=== PATIENT | female | born 1945 | race Caucasian/White ===

== ENCOUNTER 2019-10-06 20:11 | Emergency (ER) | payer OTHER ==
[~2019-10-06] VITALS: Ht 157.5 cm; Wt 65.8 kg
[~2019-10-06 20:11] MED LIST: AMLODIPINE BESYL5 MG PO; LOSARTAN POTASS50 MG PO; METHYLPREDNISOLO4 MG PO; TRAMADOL-ACETAMI1 EA PO
--- OUTSIDE RECORDS SUMMARY | 2019-10-06 20:14 | XMS REPORT ---
[facility] Address Unknown Phone Unavailable Care Team Providers Care Grain Manager Name Role Phone Unavailable Unavailable Payers Payer Name Policy Type Policy Number Effective Date Expiration Date Problems This patient has no known problems. Allergies, Adverse Reactions, Alerts Allergy Name Allergy Type Status Severity Reaction(s) Onset Date Inactive Date Treating Clinician Comments kaitlynn Chen [place] 2015-10-06 00:00:00 Medications This patient has no known medications. Results Test Description Test Time Test Comments Text Results Atomic Results Result Comments URINALYSIS COMPLETE 2019-10-01 03:43:00 UA COLOR (test code=COLU) YELLOW YELLOW UA APPEARANCE (test code=APPU) CLEAR CLEAR UA GLUCOSE DIPSTICK (test code=DGLUU) NEGATIVE mg/dL NEGATIVE UA BILIRUBIN DIPSTICK (test code=BILU) NEGATIVE mg/dL NEGATIVE UA KETONE DIPSTICK (test code=KETU) NEGATIVE mg/dL NEGATIVE UA SPECIFIC GRAVITY (test code=SGU) 1.023 1.001-1.035 UA BLOOD DIPSTICK (test code=ELVIRA) Negative mg/dL NEGATIVE UA PH DIPSTICK (test code=LIMA) 5.5 5.0-8.0 UA PROTEIN DIPSTICK (test code=PROU) NEGATIVE mg/dL NEGATIVE UA UROBILINIOGEN DIPSTICK (test code=URO) Normal mg/dL NEGATIVE UA NITRITE DIPSTICK (test code=SHELLY) NEGATIVE NEGATIVE UA LEUKOCYTE ESTERASE W REFLEX (test code=LEUUR) 250 Guerda/uL (2+) Guerda/uL NEGATIVE UA WBC (test code=WBCU) 11-20 per HPF 0-5 UA RBC (test code=RBCU) 21-50 #/HPF 0-5 UA EPITHELIAL CELLS (test code=EPIU) FEW per HPF FEW UA BACTERIA (test code=BACU) FEW #/HPF NONE UA MUCUS (test code=MUCU) FEW #/LPF FEW Urine Source? Clean CatchURINALYSIS [id number] 03:41:00* Test Item Value Reference Range Comments UA COLOR (test code=COLU) YELLOW YELLOW UA APPEARANCE (test code=APPU) CLEAR CLEAR UA GLUCOSE DIPSTICK (test code=DGLUU) NEGATIVE mg/dL NEGATIVE UA BILIRUBIN DIPSTICK (test code=BILU) NEGATIVE mg/dL NEGATIVE UA KETONE DIPSTICK (test code=KETU) NEGATIVE mg/dL NEGATIVE UA SPECIFIC GRAVITY (test code=SGU) 1.023 1.001-1.035 UA BLOOD DIPSTICK (test code=ELVIRA) Negative mg/dL NEGATIVE UA PH DIPSTICK (test code=LIMA) 5.5 5.0-8.0 UA PROTEIN DIPSTICK (test code=PROU) NEGATIVE mg/dL NEGATIVE UA UROBILINIOGEN DIPSTICK (test code=URO) Normal mg/dL NEGATIVE UA NITRITE DIPSTICK (test code=SHELLY) NEGATIVE NEGATIVE UA LEUKOCYTE ESTERASE W REFLEX (test code=LEUUR) 250 Guerda/uL (2+) Guerda/uL NEGATIVE UA WBC (test code=WBCU) per HPF 0-5 UA RBC (test code=RBCU) per HPF 0-5 UA EPITHELIAL CELLS (test code=EPIU) per HPF Few UA BACTERIA (test code=BACU) per HPF NONE Urine Source? Clean [id number] 11:10:00* Test Item Value Reference Range Comments TROPONIN-I (test code=TROPI) <0.015 ng/mL 0-0.045 COMMENTS TO PSYCHIATRIC ASSISTANT: COLLECT 3 HOURS AFTER PREVIOUS [id number] 07:50:00* Test Item Value Reference Range Comments TROPONIN-I (test code=TROPI) <0.015 ng/mL 0-0.045 COMMENTS TO PSYCHIATRIC ASSISTANT: COLLECT 3 HOURS AFTER PREVIOUS SAMPLE- CTA [id number] 01:58:00 Name: JOSS HOFF [facility] : 1945 Age/S: 73 / F [address] [facility] Unit #: [id number] Loc: [place] [address] Phys: Daron Morris MD Acct: [id number] Dis Date: Status: ADM IN PHONE #: [phone] Exam Date: 09/30/2019 0115 FAX #: [phone] Reason: cp sob EXAMS: CPT CODE: [id number] CTA CHEST 82865 EXAM: CTA aorta with IV contrast CLINICAL INFORMATION: Upper abdominal pain and shortness of breath TECHNIQUE: CT angiography of the chest, abdomen and pelvis was performed after administration of IV contrast per protocol including reformats. Coronal MIP imaging was performed. MPR analysis and 3D volume rendered reformats were generated on an independent work station. Comparison: CT February 28, 2015 Location: R16 FINDINGS: Lines and Tubes: None Aorta: Limited evaluation of the aortic roots secondary to cardiac motion. The remainder of the thoracic is unremarkable; specifically no aneurysmal dilation or dissection is seen. The abdominal aorta is normal in caliber. No dissection is seen. The central celiac, SMA and HAMILTON are patent. Perfusion to the bilateral kidneys is symmetric. Pulmonary arteries: No evidence of acute pulmonary embolism to the level of the segmental pulmonary arteries Mediastinum and Vasculature: There are no intrathoracic lymph nodes meeting CT criteria for enlargement. There is no cardiac chamber enlargement. The aorta and pulmonary artery are normal in size. A large hiatal hernia is seen Airways/Pleura/Lungs: The central airways are patent and without filling defects. The pleura is unremarkable. No lung consolidation lung masses are seen Bones and Soft tis sues: There are no suspicious osseous lesions. The overlying soft tissues are unremarkable. Abdomen: The spleen, kidneys, and adrenals are unremarkable. There is prominent intra and extrahepatic biliary ductal di lation with the common bile duct measuring up to 1.6 cm, this is similar i n appearance to remote prior of February 28, 2015. No bowel obstruction is se en. Large volume of stool seen throughout the colon No ascites or PAG E 1 Signed Report (CONTINUED) Name: JOSS HOFF [facility] : 1945 Age/S: 73 / F [address] [facility] Unit #: [id number] Loc: [place] [address] Phys: Daron Morris MD Acct: [id number] Dis Date: Status: ADM IN PHONE #: [phone] Exam Date: 09/30/2019114 FAX #: [phone] Reason: cp sob EXAMS: CPT CODE: [id number] CTA CHEST 21675 <Continued> pneumoperitoneum IMPRESSION: 1. No evidence of aortic aneurysm or dissection 2. No acute pulmonary embolus to the level of the segmental pulmonary arteries 3. Multiple additional findings as above including new large hiatal hernia and similar-appearing marked extra and intrahepatic common bile duct dilation at 0158 Reported and signed by: Yamini Gracia M.D. CC: Andrés eWiss; Daron Morris MD Technologist:ADELAIDE ADAMS CTDI: DLP: Trnscb Date/Time: 09/30/2019 (0158) [email or web address] Orig Print D/T: S: 09/30/2019 (0201) PAGE 2 Signed Report - CT ABD PELVIS [id number] 01:58:00 Name: JOSS HOFF [facility] : 1945 Age/S: 73 / F [address] [facility] Unit #: [id number] Loc: [place] [address] Phys: Daron Morris MD Acct: [id number] Dis Date: Status: ADM IN PHONE #: [phone] Exam Date: 09/30/2019 011 FAX #: [phone] Reason: upper abd pain EXAMS: CPT CODE: [id number] CT ABD PELVIS W/CONT 56181 EXAM: CTA aorta with IV contrast CLINICAL INFORMATION: Upper abdominal pain and shortness of breath TECHNIQUE: CT angiography of the chest, abdomen and pelvis was performed after administration of IV contrast per protocol including reformats. Coronal MIP imaging was performed. MPR analysis and 3D volume rendered reformats were generated on an independent work station. Comparison: CT February 28, 2015 Location: R16 FINDINGS: Lines and Tubes: None Aorta: Limited evaluation of the aortic roots secondary to cardiac motion. The remainder of the thoracic is unremarkable; specifically no aneurysmal dilation or dissection is seen. The abdominal aorta is normal in caliber. No dissection is seen. The central celiac, SMA and HAMILTON are patent. Perfusion to the bilateral kidneys is symmetric. Pulmonary arteries: No evidence of acute pulmonary embolism to the level of the segmental pulmonary arteries Mediastinum and Vasculature: There are no intrathoracic lymph nodes meeting CT criteria for enlargement. There is no cardiac chamber enlargement. The aorta and pulmonary artery are normal in size. A large hiatal hernia is seen Airways/Pleura/Lungs: The central airways are patent and without filling defects. The pleura is unremarkable. No lung consolidation lung masses are seen Bones and Soft tis sues: There are no suspicious osseous lesions. The overlying soft tissues are unremarkable. Abdomen: The spleen, kidneys, and adrenals are unremarkable. There is prominent intra and extrahepatic biliary ductal di lation with the common bile duct measuring up to 1.6 cm, this is similar i n appearance to remote prior of February 28, 2015. No bowel obstruction is se en. Large volume of stool seen throughout the colon No ascites or PAG E 1 Signed Report (CONTINUED) Name: JOSS HOFF [facility] : 1945 Age/S: 73 / F [address] [facility] Unit #: [id number] Loc: [place] [address] Phys: Daron Morris MD Acct: [id number] Dis Date: Status: ADM IN PHONE #: [phone] Exam Date: 09/30/2019 0115 FAX #: [phone] Reason: upper abd pain EXAMS: CPT CODE: [id number] CT ABD PELVIS W/CONT 69090 <Continued> pneumoperitoneum IMPRESSION: 1. No evidence of aortic aneurysm or dissection 2. No acute pulmonary embolus to the level of the segmental pulmonary arteries 3. Multiple additional findings as above including new large hiatal hernia and similar-appearing marked extra and intrahepatic common bile duct dilation at 0158 Reported and signed by: Yamini Gracia M.D. CC: Andrés Weiss; Daron Morris MD Technologist:ADELAIDE ADAMS CTDI: DLP: Trnscb Date/Time: 09/30/2019 (0158) [email or web address] Orig Print D/T: S: 09/30/2019 (7545) PAGE 2 Signed Report B-TYPE NATRIURETIC PEPTIDE 2019-09-30 00:18:00* Test Item Value Reference Range Comments B-TYPE NATRIURETIC PEPTIDE (test code=BNP) 182.14 pgram/mL 0-100 BASIC METABOLIC [id number] 23:52:00* Test Item Value Reference Range Comments SODIUM (test code=NA) 142 mmol/L 136-145 POTASSIUM (test code=K) 3.8 mmol/L 3.5-5.1 CHLORIDE (test code=CL) 107.0 mmol/L 98-107 CARBON DIOXIDE (test code=CO2) 28.0 mmol/L 21-32 ANION GAP (test code=GAP) 10.8 10-20 GLUCOSE (test code=GLU) 106 mg/dL 74-106 BLOOD UREA NITROGEN (test code=BUN) 7 mg/dL 7-18 GLOMERULAR FILTRATION RATE (test code=GFR) > 60 mL/min >=60 Estimated GFR by using Modified MDRD formula.Chronic kidney disease is defined as either kidney damageor GFR <60 mL/min/1.73 m2 for >3 months. CREATININE (test code=CREAT) 0.80 mg/dL 0.55-1.02 Note change in reference range due to change in reagent. BUN/CREATININE RATIO (test code=BUN/CREA) 8.3 10-20 CALCIUM (test code=CA) 9.2 mg/dL 8.5-10.1 [id number] 23:52:00* Test Item Value Reference Range Comments TROPONIN-I (test code=TROPI) <0.015 ng/mL 0-0.045 HEPATIC FUNCTION [id number] 23:52:00* Test Item Value Reference Range Comments TOTAL PROTEIN (test code=PROT) 8.2 gram/dL 6.4-8.2 ALBUMIN (test code=ALB) 3.4 g/dL 3.4-5.0 GLOBULIN (test code=GLOB) 4.8 gram/dL 2.7-4.2 ALBUMIN/GLOBULIN RATIO (test code=A/G) 0.7 0.75-1.50 BILIRUBIN TOTAL (test code=BILT) 0.30 mg/dL 0.0-1.0 BILIRUBIN DIRECT (test code=BILD) 0.10 mg/dL 0.0-0.20 SGOT/AST (test code=AST) 40 IUnit/L 15-37 SGPT/ALT (test code=ALT) 39 IUnit/L 12-78 ALKALINE PHOSPHATASE TOTAL (test code=ALKP) 140 IUnit/L 45-117 Note change in reference range due to change in reagent. [id number] 23:52:00* Test Item Value Reference Range Comments LIPASE (test code=LIP) 147 U/L 73.0-393.0 - XR CHEST 1 [id number] 23:45:00 FAX: Andrés Anaya MD [phone] [place]: St: [facility] FAX: Daron Morris MD [phone] Name: LUIS EDUARDOJOSS [facility] : 1945 Age/S: 73/F [address] [facility] Unit #: [id number] Loc: [place] [address] Phys: Daron Morris MD Acct: [id number] Dis Date: Status: REG ER PHONE #: [phone] Exam Date: 09/29/2019 2325 FAX #: [phone] Reason: cough EXAMS: CPT CODE: [id number] XR CHEST 1 V 16609 - XR CHEST 1 V, 09/29/2019 11:09 PM Reason For Examination: cough Comparison: December 30, 2018 Location: R16 Findings LUNGS: No definite pulmonary edema or consolidation, although exam findings limited by low lung volumes PLEURA: No pleural effusions CARDIOMEDIASTINAL SILHOUETTE Unremarkable IMPRESSION: No plain film evidence of acute cardiopulmonary abnormality within the given limitations above at 2345 Reported and signed by: Yamini Gracia M.D. CC: Andrés Weiss; Daron Morris MD Technologist: Florinda Gimenez Trnscrd Date/Time/By: 08/2019 (5269) : By: [email or web address] Orig Print D/T: S: 09/29/2019 (8460) PAGE 1 Signed Report [id number] 23:43:00* Test Item Value Reference Range Comments MAGNESIUM (test code=MAG) 2.1 mg/dL 1.8-2.4 BASIC METABOLIC [id number] 23:38:00* Test Item Value Reference Range Comments SODIUM (test code=NA) 142 mmol/L 136-145 POTASSIUM (test code=K) 3.8 mmol/L 3.5-5.1 CHLORIDE (test code=CL) 107.0 mmol/L 98-107 CARBON DIOXIDE (test code=CO2) mmol/L 21-32 ANION GAP (test code=GAP) 10-20 GLUCOSE (test code=GLU) mg/dL 74-106 BLOOD UREA NITROGEN (test code=BUN) mg/dL 7-18 GLOMERULAR FILTRATION RATE (test code=GFR) mL/min >=60 CREATININE (test code=CREAT) mg/dL 0.55-1.02 BUN/CREATININE RATIO (test code=BUN/CREA) 10-20 CALCIUM (test code=CA) 9.2 mg/dL 8.5-10.1 [id number] 23:38:00* Test Item Value Reference Range Comments TROPONIN-I (test code=TROPI) ng/mL 0-0.045 CBC W/O [id number] 23:19:00* Test Item Value Reference Range Comments WHITE BLOOD CELL (test code=WBC) 6.9 K/mm3 4.5-12.5 RED BLOOD CELL (test code=RBC) 4.25 mill/mm3 3.7-5.2 HEMOGLOBIN (test code=HGB) 12.7 gram/dL 11.5-15.5 HEMATOCRIT (test code=HCT) 40.0 % 36.0-46.0 MEAN CELL VOLUME (test code=MCV) 94.1 fL 80-98 MEAN CELL HGB (test code=MCH) 29.9 picogram 27.0-33.0 MEAN CELL HGB CONCETRATION (test code=MCHC) 31.8 gram/dL 33.0-36.0 RED CELL DISTRIBUTION WIDTH (test code=RDW) 13.5 % 11.6-16.2 PLATELET COUNT (test code=PLT) 240 K/mm3 150-450 MEAN PLATELET VOLUME (test code=MPV) 11.2 fL 6.7-11.0 - XR CHEST 1 [id number] 23:19:00 FAX: Andrés Anaya MD [phone] [place]: St: [facility] FAX: Daron Morris MD [phone] Name: LUIS EDUARDOJOSSSravani SEYMOUR [facility] : 1945 Age/S: 73/F [address] [facility] Unit #: [id number] Loc: [place] [address] Phys: Daron Morris MD Acct: [id number] Dis Date: Status: REG ER PHONE #: [phone] Exam Date: 09/29/2019 2312 FAX #: [phone] Reason: CHEST PAIN EXAMS: CPT CODE: [id number] XR CHEST 1 V 23817 DICTATION LOCATION: H48 HISTORY: Female, 73 years of age with CHEST PAIN EXAM: CHEST X-RAY, ONE VIEW COMPARISON: 10/06/2015 COMMENT: Frontal view of the chest is provided. Calcified plaque seen in the aorta. No focal infiltrate, consolidation, mass lesion, or effusion is seen. Cardiac silhouette is within normal limits. No acute bony abnormalities. IMPRESSION: No acute cardiopulmonary disease. at 2310 Reported and signed by: Juliann Gomez MD CC: Andrés Weiss; Daron Morris MD Technologist: Florinda Gimenez Trnscrd Date/Time/By: 09/29/2019 (8307) : By: Toby Orig Print D/T: S: 09/29/2019 (1589) PAGE 1 Signed Report CBC W/O [id number] 23:17:00* Test Item Value Reference Range Comments WHITE BLOOD CELL (test code=WBC) K/mm3 4.5-12.5 RED BLOOD CELL (test code=RBC) mill/mm3 3.7-5.2 HEMOGLOBIN (test code=HGB) 12.7 gram/dL 11.5-15.5 HEMATOCRIT (test code=HCT) 40.0 % 36.0-46.0 MEAN CELL VOLUME (test code=MCV) fL 80-98 MEAN CELL HGB (test code=MCH) picogram 27.0-33.0 MEAN CELL HGB CONCETRATION (test code=MCHC) gram/dL 33.0-36.0 RED CELL DISTRIBUTION WIDTH (test code=RDW) % 11.6-16.2 PLATELET COUNT (test code=PLT) K/mm3 150-450 MEAN PLATELET VOLUME (test code=MPV) fL 6.7-11.0
[2019-10-06] MEDS ORDERED: ASPIRIN 81 MG CHEW TAB PO ONE (20:30)
[2019-10-06] MEDS ORDERED: PANTOPRAZOLE 40 MG 10ML VIAL IV STA (20:32)
[2019-10-06] MEDS ORDERED: ONDANSETRON HCL INJ 2MG/ML 2ML 2 MG/ML VIAL IV STA (20:34)
[2019-10-06] MEDS ORDERED: MAGNESIUM/ALUMINUM/SIMETHICONE 30 ML UDC PO ONE (20:45)
[2019-10-06] MEDS ORDERED: BELLADONNA ALK/PHENOBARBITAL 5 ML UDC PO ONE (20:45)
[2019-10-06] MEDS ORDERED: LIDOCAINE VISC 2% SOLN 15 ML UDC PO ONE (20:45)
[2019-10-06 20:55] LABS: BASOPHILS % 0.2 % (0.0-1.0); EOSINOPHILS # (AUTO) 0.1 (0.0-0.4); EOSINOPHILS % 0.5 % (0.0-6.0); HEMATOCRIT 38.6 % (34.2-44.1); HEMOGLOBIN 12.1 g/dL (12.0-16.0); LYMPHOCYTES % 9.3 % (18.0-39.1); MEAN CORPUSCULAR HEMOGLOBIN 29.8 pg (28-32); MEAN CORPUSCULAR HGB CONC 31.3 g/dL (31-35); MEAN CORPUSCULAR VOLUME 95.1 fL (81-99); MONOCYTES # (AUTO) 0.5 (0.2-0.8); MONOCYTES % 4.8 % (4.4-11.3); NEUTROPHILS # (AUTO) 9.4 (2.1-6.9); NEUTROPHILS % 84.7 % (38.7-80.0); PLATELET COUNT 209 x10e3/uL (140-360); RED BLOOD COUNT 4.06 x10e6/uL (3.6-5.1); RED CELL DISTRIBUTION WIDTH 13.4 % (11.7-14.4)
--- NOTE | 2019-10-06 21:08 | NUR ---
PT SCREAMING AND YELLING AT STAFF. PT SHOUTING FOR PAIN MEDICATION. PT NOTED KICKING LEGS AND YELLING "GIVE ME SOMETHING FOR MY PAIN." PT INFORMED THAT JUST MEDICATED PER ORDERS FOR C/O PAIN. PT STATES THAT RAN OUT OF HER METHADONE TODAY. INFORMED.
[2019-10-06 21:12] LABS: ALANINE AMINOTRANSFERASE 90 IU/L (0-55); ALBUMIN 3.7 g/dL (3.5-5.0); ALBUMIN/GLOBULIN RATIO 0.9 (0.8-2.0); ALKALINE PHOSPHATASE 130 IU/L (40-150); ANION GAP 15.2 mmol/L (8-16); BLOOD UREA NITROGEN 10 mg/dL (7-26); BUN/CREATININE RATIO 13 (6-25); CALCIUM 9.4 mg/dL (8.4-10.2); CARBON DIOXIDE 25 mmol/L (22-29); CHLORIDE 105 mmol/L (98-107); CREATINE KINASE 62 IU/L (29-168); CREATININE, SERUM 0.77 mg/dL (0.57-1.11); EST GLOMERULAR FILTRATION RATE > 60 ML/MIN (60-); GLUCOSE 117 mg/dL (74-118); POTASSIUM 4.2 mmol/L (3.5-5.1); SODIUM 141 mmol/L (136-145)
[2019-10-06 21:27] LABS: AMYLASE 76 U/L (25-125); LIPASE 167 U/L (8-78)
--- NOTE | 2019-10-06 21:42 | Diagnostic Imaging Report ---
EXAMINATION: CHEST SINGLE (PORTABLE) COMPARISON: None INDICATION: ^chest pain ^[id number] ^2054 ^Y DISCUSSION: Frontal view of the chest obtained at 2101 hours. HEART AND MEDIASTINUM: The heart is normal in size. The aorta is mildly tortuous. There is a small hiatal hernia. LINES: None. LUNGS: The lungs are well inflated and clear. No pneumonia or pulmonary edema. PLEURA: No pleural effusion or pneumothorax. BONES AND SOFT TISSUES: No focal osseous lesion. The soft tissues are normal. IMPRESSION: No acute cardiopulmonary disease. Small hiatal hernia. Signed by: Dr. Luis Rodas MD on 10/06/2019 9:38 PM
== END 2019-10-06 21:08 | disposition left against medical advice (07) ==
LOC: ER 20:11
DX: R07.89 Other chest pain (principal); K29.00 Acute gastritis without bleeding; I10 Essential (primary) hypertension; G40.909 Epilepsy, unspecified, not intractable, without status epilepticus; F41.9 Anxiety disorder, unspecified; F11.90 Opioid use, unspecified, uncomplicated
CPT/HCPCS: 36415; 71045; 80053; 82150; 82550; 82553; 83690; 84484; 85025; 93005; 99283; C9113; J2405